=== PATIENT | female | born 1970 | race African-American/Black ===

== ENCOUNTER → 2017-07-16 | Day surgery (SDC) | payer OTHER ==
--- NOTE | 2017-07-21 14:17 | PATH ---
Cytology Non-Gynecological Report Patient Name: ULISES GAN [facility]. Rec. #: [id number] /Age/Gender: 1970 (Age: 47) / F Account: [id number] Location: Taken: 07/16/2017 Received: 07/16/2017 Reported: 07/21/2017 Physicians: Eri Chen M.D. Specimen(s) Received RIGHT BREAST CYST Clinical History r/o hemorrhagic cyst Final Diagnosis BREAST, RIGHT, CYST, ASPIRATION: BLOOD AND ACELLULAR MATERIAL, CONSISTENT WITH HEMORRHAGIC CYST. Electronically Signed Crystal Mojica M.D. Gross Description Received in 50% alcohol is approximately 30 cc of brown fluid from which two cytoconcentrate slides and two cell blocks are prepared.
== END | disposition home or self-care (01) ==
LOC: FRADUS-SUR 13:12
PROVIDERS: ATTEND Surgery
PROC: 0H9T3ZX Drainage of Right Breast, Percutaneous Approach, Diagnostic (ICD-10-PCS; principal; 2017-07-16)
PROC: BH40ZZZ Ultrasonography of Right Breast (ICD-10-PCS; 2017-07-16)
DX: N60.01 Solitary cyst of right breast (principal)
CPT/HCPCS: 76942-TC; 87899; 88173

== ENCOUNTER 2019-08-01 11:27 | Day surgery (SDC) | payer OTHER ==
[2019-08-01 12:34] LABS: BASO % 0.5 % (0-2.0); EOS % 1.7 % (0-4.5); HEMATOCRIT 37.3 % (32.4-45.2); HEMOGLOBIN 12.4 GM/dL (10.7-15.3); LYMPH % 30.6 % (8-40); MCH 28.5 pg (25.7-33.7); MCHC 33.4 g/dl (32.0-36.0); MEAN CELL VOLUME 85.3 fl (80-96); MEAN PLT VOLUME 8.4 fl (7.5-11.1); NEUT % 54.2 % (42.8-82.8); PLATELET COUNT 233 K/MM3 (134-434); RBC 4.37 M/mm3 (3.60-5.2); RDW 13.5 % (11.6-15.6)
--- NOTE | 2019-08-01 12:56 | PDOC ---
History of Present Illness - General Chief Complaint: Pain Stated Complaint: POSSIBLE APPENDICITIS Time Seen by Provider: 08/01/19 11:50 History Source: Patient Exam Limitations: No Limitations - History of Present Illness Travel History: No Initial Comments: 08/01/19 12:03 49 y/o female here for evaluation of RLQ pain x 3 days without n/v/d//fever/ or urinary complaints. Pt states went to urgent care clinic yesterday and went for ct this am. pt received phone call form PMD and told her to f/u with surgeon as CT showed signs of appendicitis Timing/Duration: reports: constant Quality: reports: cramping, sharpness Abdominal Pain Onset Location: reports: RLQ Pain Radiation: reports: no radiation Activities at Onset: reports: none Aggravating Factors: improves with: None Alleviating Factors: improves with: None Past History - Travel Traveled outside of the country in the last 30 days: No Close contact w/someone who was outside of country & ill: No - Past Medical History Allergies/Adverse Reactions: Allergies Allergy/AdvReac Type Severity Reaction Status Date / Time No Known Allergies Allergy Verified 08/01/19 11:46 Home Medications: Ambulatory Orders No Home Medications 0 dose .ROUTE UTDICT 05/04/13 Oxycodone HCl/Acetaminophen [Percocet 5/325 -] 1 combo PO Q6H PRN #14 tablet COPD: No - Immunization History Immunization Up to Date: Yes - Suicide/Smoking/Psychosocial Hx Smoking Status: No Smoking History: Never smoked Have you smoked in the past 12 months: No Number of Cigarettes Smoked Daily: 0 Information on smoking cessation initiated: No Hx Alcohol Use: No Drug/Substance Use Hx: No Patient Lives Alone: No Lives with/in: spouse/SO Review of Systems - Review of Systems Able to Perform ROS?: Yes Constitutional: No: Symptoms Reported HEENTM: No: Symptoms Reported Respiratory: No: Symptoms reported Cardiac (ROS): No: Symptoms Reported ABD/GI: Yes: Abdominal cramping. No: Constipated, Diarrhea, Nausea, Vomiting : No: Symptoms Reported Musculoskeletal: No: Symptoms Reported Integumentary: No: Symptoms Reported Neurological: No: Symptoms reported *Physical Exam - Vital Signs Last Vital Signs Temp Pulse Resp BP Pulse Ox 98.1 F 60 17 117/75 100 08/01/19 11:43 08/01/19 11:43 08/01/19 11:43 08/01/19 11:43 08/01/19 11:43 - Physical Exam General Appearance: Yes: Nourished, Appropriately Dressed. No: Apparent Distress HEENT: negative: Pale Conjunctivae Respiratory/Chest: positive: Lungs Clear, Normal Breath Sounds. negative: Respiratory Distress, Accessory Muscle Use Cardiovascular: positive: Regular Rhythm, Regular Rate. negative: Murmur Gastrointestinal/Abdominal: positive: Soft, Tenderness (rt lq and rt suprapubic) Musculoskeletal: negative: CVA Tenderness Extremity: positive: Normal Inspection Integumentary: positive: Normal Color, Warm, Moist Neurologic: positive: Motor Strength 5/5 (ambulatory) ED Treatment Course - LABORATORY CBC & Chemistry Diagram: 08/01/19 12:20 08/01/19 12:20 - ADDITIONAL ORDERS Additional order review: 08/01/19 12:20 RBC 4.37 MCV 85.3 MCHC 33.4 RDW 13.5 D MPV 8.4 Neutrophils % 54.2 D Lymphocytes % 30.6 D Monocytes % 13.0 H Eosinophils % 1.7 Basophils % 0.5 - RADIOLOGY Radiology Studies Ordered: Category Date Time Status PELVIC / BLADDER US [US] Stat Ultrasound 08/01/19 12:07 Ordered Medical Decision Making - Medical Decision Making 08/01/19 12:19 CC: RLQ pain without assoc s/s. Exam: + mc burneys sign and rt suprapubic and lat of rlq tenderness, vss Plan: u/s, labs and urine 08/01/19 14:[address] Villavicencio, pts pcp and reviewed CT report which was consistent with appendicitis 08/01/19 15:23 Laboratory Tests 08/01/19 08/01/19 12:20 12:20 WBC 5.0 Hgb 12.4 Hct 37.3 D Neutrophils % 54.2 D Monocytes % 13.0 H Sodium 141 Potassium 3.9 Chloride 105 Carbon Dioxide 31 Anion Gap 5 L BUN 9.0 Creatinine 0.6 Random Glucose 80 Calcium 9.1 Magnesium 2.2 Total Bilirubin 0.4 AST 28 ALT 29 Alkaline Phosphatase 62 Total Protein 7.3 Albumin 3.4 Pts ultrasound report showed tubular structure and thickening. Unable to r/o appendicitis. Case discussed with surgeon, Dr. Hernandez who will examine pt shortly. Pt to be admitted to her service *DC/Admit/Observation/Transfer Diagnosis at time of Disposition: Appendicitis - Discharge Dispostion Decision to Admit order: Yes - Referrals - Patient Instructions - Post Discharge Activity
[2019-08-01 13:08] LABS: ALBUMIN 3.4 g/dl (3.4-5.0); ALK PHOS 62 U/L (45-117); ANION GAP 5 MMOL/L (8-16); BILIRUBIN,TOTAL 0.4 mg/dL (0.2-1); CALCIUM 9.1 mg/dL (8.5-10.1); CHLORIDE 105 mmol/L (98-107); CO2 31 mmol/L (21-32); CREATININE 0.6 mg/dL (0.55-1.3); GLUCOSE,RANDOM 80 mg/dL (74-106); MAGNESIUM 2.2 mg/dL (1.8-2.4); POTASSIUM 3.9 mmol/L (3.5-5.1); SGOT/AST 28 U/L (15-37); SGPT/ALT 29 U/L (13-61); SODIUM 141 mmol/L (136-145); TOT PROT 7.3 g/dl (6.4-8.2)
[2019-08-01] MEDS ORDERED: SODIUM CHLORIDE 1,000 ML IV STA (15:14)
[2019-08-01] MEDS ORDERED: SODIUM CHLORIDE 1,000 ML IV SCH (15:15)
[2019-08-01] MEDS ORDERED: CEFOXITIN SODIUM 1 GM in DEXTROSE 5%-WATER - 100 ML IVPB ONE (15:19)
--- NOTE | 2019-08-01 16:15 | HP ---
Admitting History and Physical - Primary Care Physician PCP: none - Admission Chief Complaint: RLQ pain History of Present Illness: 49yo F with h/o fibroids s/p uterine ablation, hemorrhoids s/p hemorrhoidectomy , ectopic s/p R salpingectomy, and acne on Doxycycline 50mg daily for 2 weeks now, began having generalized abdominal discomfort, gassiness, bloating , heaviness on Wednesday evening, for which she tried laxatives and Zantac, without much relief. She also had no appetite, but denies fever, chills, diarrhea or constipation, or urinary complaints. Yesterday, the pain migrated to RLQ, and she still wasn't hungry. Today, she went to [facility], where she had labs and CT done, and when the report came back as appendicitis, she was sent to the ER. Here, wbc is 5, and US does show a tubular enlarged structure in the RLQ, possibly appendix or bowel loop. No free fluid or evidence of rupture on the CT from this morning. History Source: Patient Limitations to Obtaining History: No Limitations - Past Medical History Reproductive: Yes: Ectopic , Fibroids, Postmenopausal Dermatology: Yes: Other (acne) - Past Surgical History Additional Past Surgical History: uterine ablation 2 yrs ago, R ectopic/salpingectomy, breast cyst aspiration, hemorrhoid surgery - Smoking History Smoking history: Never smoked Have you smoked in the past 12 months: No - Alcohol/Substance Use Hx Alcohol Use: No History of Substance Use: reports: None - Social History Usual Living Arrangement: Yes: With Spouse ADL: Independent Occupation: nurse practitioner Home Medications - Allergies Allergies/Adverse Reactions: Allergies Allergy/AdvReac Type Severity Reaction Status Date / Time No Known Allergies Allergy Verified 08/01/19 11:46 - Home Medications Home Medications: Ambulatory Orders No Home Medications 0 dose .ROUTE UTDICT 05/04/13 Doxycycline Hyclate 50 mg PO DAILY 08/01/19 Family Disease History - Family Disease History Family Disease History: Heart Disease: Father ( of [place], in his 60s), Other: Mother (htn) Review of Systems - Review of Systems Constitutional: reports: Loss of Appetite. denies: Chills, Fever Eyes: denies: Blurred Vision, Recent Change in Vision HENT: denies: Difficult Swallowing, Throat Pain Neck: denies: Swollen Glands, Tenderness Cardiovascular: denies: Chest Pain, Palpitations Respiratory: denies: Cough, SOB Gastrointestinal: reports: Abdominal Pain. denies: Constipation, Diarrhea, Nausea, Vomiting Genitourinary: denies: Burning, Dysuria Breasts: reports: Other (cystic breasts) Musculoskeletal: denies: Back Pain, Joint Pain, Muscle Pain Integumentary: denies: Change in Color, Rash Neurological: denies: Dizziness, Headache Psychiatric: denies: Anxiety, Depression Physical Examination Vital Signs: Vital Signs Temperature 98.2 F 08/01/19 15:48 Pulse Rate 69 08/01/19 15:47 Respiratory Rate 20 08/01/19 15:47 Blood Pressure 128/96 08/01/19 15:47 O2 Sat by Pulse Oximetry (%) 98 08/01/19 15:47 Constitutional: Yes: Well Nourished, No Distress, Calm Eyes: Yes: Conjunctiva Clear, EOM Intact HENT: Yes: Atraumatic, Normocephalic Neck: Yes: Supple, Trachea Midline Cardiovascular: Yes: Regular Rate and Rhythm Respiratory: Yes: Regular, CTA Bilaterally Gastrointestinal: Yes: Normal Bowel Sounds, Soft, Hernia (tiny umbilical defect palpable), Tenderness (RLQ focal with referred from upper, no rebound/guarding) ...Rectal Exam: Yes: Deferred Renal/: No: CVA Tenderness - Left, CVA Tenderness - Right Musculoskeletal: No: Joint Stiffness, Joint Swelling Extremities: No: Cool, Cyanosis Edema: No Peripheral Pulses WNL: Yes Integumentary: No: Jaundice, Rash Neurological: Yes: Alert, Oriented. No: Unsteady Gait Psychiatric: Yes: Alert, Oriented Labs: CBC, BMP 08/01/19 12:20 08/01/19 12:20 Imaging - Results Cat Scan: Report Reviewed (from outside - + appendicitis, enlarged/inflamed appendix without abscess or perforation, some cecal inflammation likely secondary) Ultrasound: Report Reviewed (tubular structure in RLQ consistent with possible enlarged appendix) Problem List - Problems (1) Acute appendicitis with localized peritonitis, without perforation, abscess , or gangrene Assessment/Plan: admit surgery 23H/satellite NPO until postop periop antibiotics pain meds prn - nonnarcotics first line DVT prophylaxis Discussed with patient risks, benefits and alternatives of laparoscopic possible open appendectomy with possible umbilical hernia repair, including but not limited to bleeding, infection, injury to adjacent structures, intestinal leak or injury, intraabdominal abscess, recurrent or incisional hernia, need for further procedures, ; alternatives include antibiotics, delayed or no surgery - risks of this include failure of nonoperative therapy, perforation, sepsis, recurrence, . Patient desires to proceed with operation - will take to OR for above. Informed consent signed for same. Code(s): K35.30 - ACUTE APPENDICITIS WITH LOC PERITONITIS, W/O PERF OR GANGR (2) RLQ abdominal pain Code(s): R10.31 - RIGHT LOWER QUADRANT PAIN (3) Umbilical hernia without mention of obstruction or gangrene Assessment/Plan: may use for Carmella port, if so, will repair on way out Code(s): K42.9 - UMBILICAL HERNIA WITHOUT OBSTRUCTION OR GANGRENE Qualifiers: Obstruction and gangrene presence: without obstruction or gangrene Qualified Code(s): K42.9 - Umbilical hernia without obstruction or gangrene (4) Anorexia Code(s): R63.0 - ANOREXIA (5) Acne Assessment/Plan: ok to continue doxy Code(s): L70.9 - ACNE, UNSPECIFIED Qualifiers: Acne type: acne vulgaris Qualified Code(s): L70.0 - Acne vulgaris
[2019-08-01] MEDS ORDERED: CEFOXITIN SODIUM 1 GM IVPB ONE (16:17)
[2019-08-01 16:18] LABS: INR 1.2 (0.83-1.09); PROTHROMBIN TIME (PATIENT) 14.2 SEC (9.7-13.0)
[2019-08-01] MEDS ORDERED: CEFOXITIN SODIUM 2 GM IVPB ONE (16:24)
[2019-08-01] MEDS ORDERED: MIDAZOLAM HCL 2 MG/2 ML SINGLE DOSE VIAL ONE (17:20)
[2019-08-01] MEDS ORDERED: PROPOFOL 20 ML ONE (17:20)
[2019-08-01] MEDS ORDERED: ROCURONIUM BROMIDE 50 MG/5 ML SYRINGE ONE (17:20)
[2019-08-01] MEDS ORDERED: cefOXitin SODIUM 1 GM VIAL (RESTRICTED TO ID) IVPB ONE (17:53)
[2019-08-01] MEDS ORDERED: BUPIVACAINE HCL/PF 0.5% (5 MG/ML) 30 ML VIAL IJ ONE (17:55)
[2019-08-01] MEDS ORDERED: GLYCOPYRROLATE 0.2 MG/1 ML VIAL ONE (18:08)
[2019-08-01] MEDS ORDERED: NEOSTIGMINE METHYLSULFATE 0.5 MG/ML - 10 ML MDV ONE (18:08)
[2019-08-01] MEDS ORDERED: KETOROLAC TROMETHAMINE 30 MG/1 ML VIAL ONE (18:08)
[2019-08-01] MEDS ORDERED: DEXAMETHASONE SOD PHOSPHATE 4 MG/1 ML VIAL ONE (18:08)
[2019-08-01] MEDS ORDERED: MINERAL OIL/PETROLATUM,WHITE 3.5 GM TUBE ONE (19:18)
[2019-08-01] MEDS ORDERED: ONDANSETRON 4 MG/2 ML VIAL IVPUSH PRN (19:30)
[2019-08-01] MEDS ORDERED: ONDANSETRON 4 MG/2 ML VIAL ONE (19:53)
--- NOTE | 2019-08-01 20:00 | OP ---
Operative Note - Note: Operative Date: 08/01/19 Pre-Operative Diagnosis: acute appendicitis Operation: laparoscopic appendectomy Findings: very enlarged, inflamed appendix, stuck to RLQ sidewall and adjacent SB; base identified and soft; small amount yellow fluid in pelvis, suctioned Post-Operative Diagnosis: Same as Pre-op Surgeon: Tu Hernandez Anesthesiologist/WOOL WASHER: Lorraine Buchanan (luba/Dr. Calhoun) Anesthesia: General, Local (10ml 0.5% marcaine) Specimens Removed: appendix to pathology Estimated Blood Loss (mls): 10 Drains & Tubes with Location: Girard out at end of case Drains, Volume Out (mls): 300 (UOP) Fluid Volume Replaced (mls): 1,200 (crystalloid) Operative Report Dictated: Yes
[2019-08-01] MEDS ORDERED: PROMETHAZINE HCL 25 MG/1 ML VIAL ONE (20:16)
[2019-08-01] MEDS ORDERED: IBUPROFEN 600 MG TABLET (FP) PO SCH (21:00)
[2019-08-01] MEDS: LACTATED RINGERS SOLUTION 1,000 ML IV SCH (21:35)
[2019-08-01] MEDS: ACETAMINOPHEN 325 MG TABLET (FP) PO SCH (21:38)
[2019-08-01 21:39] VITALS: BMI 26.9
[2019-08-01] MEDS: IBUPROFEN 600 MG TABLET (FP) PO SCH (23:59)
[2019-08-02] MEDS ORDERED: ACETAMINOPHEN 325 MG TABLET (FP) PO SCH
[2019-08-02] MEDS: ACETAMINOPHEN 325 MG TABLET (FP) PO SCH ×3 (02:33→14:47)
[2019-08-02] MEDS: IBUPROFEN 600 MG TABLET (FP) PO SCH ×2 (05:29→12:03)
[2019-08-02] MEDS: LACTATED RINGERS SOLUTION 1,000 ML IV SCH (06:34)
[2019-08-02 12:55] VITALS: BP 136/80; PULSE 74; TEMP 98
--- NOTE | 2019-08-02 14:44 | DS ---
Physical Examination Vital Signs: Vital Signs Temperature 98.0 F 08/02/19 09:32 Pulse Rate 74 08/02/19 09:32 Respiratory Rate 17 08/02/19 09:32 Blood Pressure 136/80 08/02/19 09:32 O2 Sat by Pulse Oximetry (%) 99 08/02/19 09:35 Findings/Remarks: s/p lap appy yesterday evening Pt seen and examined in room, in bed, with present. Has been ambulating , voiding, tolerating diet, pain mild and controlled with alternating nonnarcotics po. She is feeling much better. Passed some gas, no BM yet. Mildly distended. No nausea or fevers. Constitutional: Yes: Well Nourished, No Distress, Calm Eyes: Yes: Conjunctiva Clear, EOM Intact HENT: Yes: Atraumatic, Normocephalic Cardiovascular: Yes: Regular Rate and Rhythm Respiratory: Yes: Regular, CTA Bilaterally Gastrointestinal: Yes: Normal Bowel Sounds, Soft, Distention (with some tympany) , Tenderness (mild incisional, mild RLQ, no R/G) Renal/: No: Girard Present, Incontinence Musculoskeletal: No: Joint Stiffness, Joint Swelling Extremities: No: Cool, Cyanosis Edema: No Integumentary: Yes: Incision (x3 dressed). No: Jaundice, Rash Wound/Incision: Yes: Steri Strips (under dressings), Dressing Dry and Intact (x3 ). 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 She had seen [facility] and been sent for CT, which was read as positive for appendicitis, so was called and sent to ER. In ER, she had wbc 5 and US did show enlarged tubular structure in RLQ. Exam was notable for focal RLQ tenderness and very small umbilical hernia defect. She was taken for laparoscopic appendectomy, with findings of very enlarged, inflamed appendix stuck to RLQ sidewall and very little yellow fluid in pelvis, suctioned. The umbilical hernia defect was not addressed at this time. She got Cefoxitin 2g immediately preoperatively for antibiotic coverage. Postoperatively, she has done well, ambulating, voiding, and is tolerating regular diet. Her pain is mild and controlled with alternating tylenol and ibuprofen. She is discharged home with lifting restrictions to f/u in 2 weeks with a referral for a primary physician. Time spent on discharge 35 minutes. Condition: Good - Instructions Diet, Activity, Other Instructions: Postoperative instructions: You had a laparoscopic appendectomy on 08/01/[address] Tu Hernandez of [facility]. Activity: Resume your usual activities gradually, but no heavy exertion or lifting more than 10-15 pounds for 1 month. Remove dressings 48 hours after surgery; sticky tapes underneath will fall off by themselves. You may shower daily once the outer dressings are off, just pat the incision areas dry. No bath or swimming until skin incisions have fully healed. Eat lightly at first, but advance to your usual diet as tolerated. Pain: For pain, you may use and alternate Tylenol (acetaminophen) 1-2 pills and/ or ibuprofen 200 mg (1-3 pills) every 6 hours each as needed; this means that you can take one OR the other at 3-hour intervals. If you are prescribed a Tylenol/narcotic combination for severe pain, use it instead of plain Tylenol as needed and switch back when your pain starts decreasing. Do not take more than 4000mg of acetaminophen in a day. Take medications as prescribed or indicated on the labeling. Follow-up: Call Dr. Hernandez's office at [phone] to make your postop appointment (Wednesday in approximately 2 weeks after surgery). Clinic is held in the Diagnostic [facility] on the first floor of [facility]. Call the office if you have: * increasing pain not responsive to pain medication * fever of 101F or higher * vomiting * unusual or increasing bleeding or drainage from wounds * increasing redness or swelling at wound sites Also, call to establish care with a primary medical doctor within 1-2 weeks. You have been given a referral to one or more physicians, or you may contact your insurance company to find someone in your network. Referrals: Aliza Rojas MD [Staff Physician] - (referred to establish primary care) Tu Hernandez MD [Staff Physician] - 2 Weeks (CALL for appointment in 2 weeks - clinic is held in [facility], 1st floor [facility]) Disposition: HOME - Home Medications Comprehensive Discharge Medication List: Ambulatory Orders Doxycycline Hyclate 50 mg PO DAILY 08/01/19 Acetaminophen [Tylenol .Regular Strength -] 650 mg PO Q6H tablet 08/02/19 Ibuprofen [Motrin -] 600 mg PO Q6H tablet 08/02/19
--- NOTE | 2019-08-03 16:37 | PATH ---
Surgical Pathology Report Patient Name: ULISES GAN [facility]. Rec. #: [id number] /Age/Gender: 1970 (Age: 49) / F Account: [id number] Location: AMBULATORY SURG Taken: 08/01/2019 Received: 08/02/2019 Reported: 08/03/2019 Physicians: Tu Hernandez M.D. Specimen(s) Received APPENDIX Clinical History Acute appendicitis Generalized abdominal discomfort, pain RLQ Final Diagnosis APPENDIX, APPENDECTOMY: ACUTE APPENDICITIS AND PERIAPPENDICITIS. Electronically Signed Shanique Chapa M.D. Gross Description Specimen is received in formalin, labeled "appendix", and consists of an appendix, measuring 8cm in length and 0.5 to 1.5 cm in diameter. The serosal (external) surface of the appendix is dull and covered by purulent material. On opening the appendix contains hemorrhagic material. The mucosal surface is red-brown and ulcerated. White [employer] Grinder sections are submitted in two cassettes. MAICOL/08/02/2019 rajan/08/02/2019
--- NOTE | 2019-08-14 19:36 | OP ---
DATE OF OPERATION: 08/01/2019 PREOPERATIVE DIAGNOSIS: Acute appendicitis. POSTOPERATIVE DIAGNOSIS: Acute appendicitis. PROCEDURE: Laparoscopic appendectomy. SURGEON: Tu Hernandez MD ANESTHESIA: General endotracheal and local, 10 mL of 0.5% Marcaine. ESTIMATED BLOOD LOSS: 10 mL. FLUIDS: Crystalloid 1200 mL. URINE OUTPUT: 300 mL (Girard out at end of case). SPECIMEN: Appendix to pathology. FINDINGS: Very enlarged, inflamed appendix, stuck to right lower quadrant sidewall and adjacent small bowel. Base identified and soft. Small amount of yellow fluid in pelvis, which was suctioned. DISPOSITION: Stable and extubated to PACU. INDICATIONS FOR PROCEDURE: The patient is a 49-year-old female with no significant medical history, but a surgical history significant for uterine ablation for fibroids, hemorrhoidectomy, and ectopic with salpingectomy, who had been taking doxycycline for the previous 2 weeks at a low dose for acne, who began having generalized abdominal discomfort, bloating, and gassiness for a couple days prior to presentation. This was associated with anorexia, but not fever, chills, diarrhea, constipation, or urinary complaints. A day prior to presentation, the pain migrated to her right lower quadrant; so, she went to urgent care where she had labs and a CT done, and the report came back as appendicitis. She was called and told to go to the emergency room. In the ER, she was afebrile. Her white count was 5. An ultrasound was done confirming a tubular, enlarged structure in the right lower quadrant, though not clear whether it was the appendix or a bowel loop. There was no free fluid or evidence of rupture on the CT from the report outside, and her exam was consistent with focal right lower quadrant tenderness, also referred from the upper quadrant with no rebound or guarding. She had a tiny umbilical defect also palpable. Risks, benefits, and alternatives of laparoscopic, possible open appendectomy with possible umbilical hernia repair were discussed with the patient including, but not limited to, bleeding, infection, injury to adjacent structures, intestinal leak or injury, intraabdominal abscess, recurrent or incisional hernia, need for further procedures, and . Alternatives inclusive of antibiotics with delayed or no surgery were also discussed, and the risks of these included failure of nonoperative therapy, perforation, sepsis, recurrence, and . The patient was agreeable to proceed with an operation, signed informed consent for the same, and is now brought to the OR for this procedure. She had been started on fluids and antibiotics which were continued in the immediate preoperative period. OPERATIVE TECHNIQUE: The patient was brought to the operating room and laid supine on the operating table. Sequential compression devices were applied to bilateral lower extremities, and after induction and intubation by Anesthesia, a Girard catheter was placed in the patient's bladder, which was removed at the end of the case. Her abdomen was prepped and draped in sterile fashion. A small infraumbilical midline incision made with a scalpel and carried into subcutaneous tissues with electrocautery. The umbilical hernia was not readily evident, and so was not used for entry or repair attempted. The fascia in the midline just below the umbilicus was identified, scored, and divided with electrocautery to expose the preperitoneal fat. The fascia was elevated with Earnest clamps. The peritoneum was entered bluntly with the tip of a clamp, and a fingertip inserted to ensure entry into the abdominal cavity and the absence of any underlying adhesions. A stay suture of 0 Vicryl was placed in the fascia in [id number] fashion for later closure, and a Carmella port introduced directly into the abdominal cavity and secured in place with the balloon. The abdomen was insufflated with carbon dioxide. The patient was placed in Trendelenburg position, and the laparoscope inserted to inspect the abdominal cavity. There was some omentum visible in the right lower quadrant, with what appeared to be an inflamed structure underneath it. Two additional 5-mm ports were placed in the left lower quadrant and suprapubic areas under direct vision, and the camera was moved to the left lower quadrant port. Graspers were introduced through the other 2 ports and used to gently manipulate the small bowel and the omentum medially and away from the right lower quadrant, revealing a rather large, inflamed appendix which appeared to be fairly stuck to the right lower quadrant sidewall, and to some limited degree the veil of Treves and adjacent small bowel. A [place] dissector was used to begin bluntly taking the appendix off of the right lower quadrant sidewall where it was stuck to the peritoneum, in conjunction with the grasper in the other hand. It was also carefully and bluntly from the adjacent small bowel. As the appendix was mobilized, the base was identified where it joined the cecum and noted to be rather soft. The [place] dissector was then used to create a window right at this site through the mesoappendix, so the base could be transected with a 45 purple load of the Endo CRISTINO stapler. The remaining mesoappendix was then difficult to get into position to transect with the stapler, but ultimately, this was successful with two 45 white loads of the Endo CRISTINO stapler, and the appendix was completely freed from its adjacent attachments. The staple lines were noted to be hemostatic. There was a small amount of yellow fluid in the pelvis which was suctioned with the suction color drum worker tool, as well as the bloody fluid from around the operative site. The appendix was then placed in an Endo Catch bag and retrieved up into the Carmella trocar. The suprapubic port was then removed under direct vision. The Carmella trocar with the appendix in the bag were removed together, and the left lower quadrant port and camera removed as well. The abdomen was then exsufflated of carbon dioxide, and the patient returned to neutral position. The stay suture at the umbilicus was tied to close the fascia there. Hemostasis was achieved at the port sites with electrocautery where needed, and local anesthetic injected into all the port sites. The skin was then closed with 4-0 Vicryl subcuticular sutures, including a running at the umbilicus. Benzoin and Steri-Strips were applied over each incision, and dressings of gauze and Tegaderm placed over these. Counts were correct at the end of the procedure. The Girard catheter was removed from the patient's bladder at the end of the case. Patient was then awakened and extubated by Anesthesia, moved back to a stretcher, and taken to the recovery room in stable condition, having tolerated the procedure well. Tu Hernandez M.D. [id number] MTDD
== END 2019-08-02 15:16 | disposition home or self-care (01) ==
LOC: JER 11:27 → JASUSAT 15:25 → JSAMEDAYSX 16:25 → J6S 21:21 → JASUSAT 08-02 15:16
PROVIDERS: ATTEND Surgery
PROC: 0DTJ4ZZ Resection of Appendix, Percutaneous Endoscopic Approach (ICD-10-PCS; principal; 2019-08-01 15:30)
DX: K35.80 Unspecified acute appendicitis (principal)
CPT/HCPCS: 36415; 76856-TC; 80053; 83735; 84702; 85025; 85610; 86850; 86900; 86901; 88304-TC; 94760; 99285-25; J7030